=== PATIENT | male | born 1970 | race Caucasian/White ===

== ENCOUNTER 2017-10-23 13:42 | Emergency (ER) | payer OTHER, MEDICAID, SELFPAY ==
[2017-10-23 13:46] VITALS: BP 147/89; PULSE 97; RESP 12; TEMP 37.2; O2SAT 97
--- NOTE | 2017-10-23 14:08 | ED.ANXIETY ---
HPI - Anxiety General Chief Complaint: Anxiety Stated Complaint: ANXIETY Time Seen by Provider: 10/23/17 13:57 Source: patient Mode of arrival: ambulatory Limitations: no limitations History of Present Illness HPI narrative: Patient is a 47-year-old male with a longstanding history of anxiety currently being followed by a mental health provider and also a counselor at [facility]. Is on Celexa and also Xanax. States that for approximately 2 months he was off of all of his medications. States approximately 2-3 weeks ago he was placed back on his medications and has been taking the Celexa on a daily basis. Over the past 4-5 days he has had an increase in his anxiety. He states that this is secondary to a change in living situation where his roommate is moving out. He states that he has been taking his Xanax for the past 4 days and normally 1 dose of this medication will carry him for several days in a row of her he has been having to take it every day for the past 4 days. Related Data Home Medications Medication Instructions Recorded Confirmed citalopram 20 mg PO DAILY #0 03/22/17 10/23/17 Previous Rx's Medication Instructions Recorded alprazolam 1 mg PO TIDP PRN #10 tab 03/22/17 Allergies Allergy/AdvReac Type Severity Reaction Status Date / Time Sulfa (Sulfonamide Allergy Unknown Verified 10/23/17 14:13 Antibiotics) [SULFA (SULFONAMIDE ANTIBIOTICS)] Review of Systems Constitutional Denies fever(s) Cardiovascular Denies chest pain, Denies syncope and Denies dyspnea Respiratory Denies dyspnea Gastrointestinal Gastrointestinal: Denies abdominal pain Musculoskeletal Denies myalgias and Denies arthralgias Integumentary/Breasts Denies lesions and Denies rash Neurologic Denies syncope Psychiatric Reports anxiety, Denies mood swings and Denies panic attacks Hematologic/Lymphatic Denies easy bleeding and Denies easy bruising PFSH Medical History Anxiety (Acute) Surgical History No pertinent past surgical history (Acute) Social History Smoking Status: Current every day smoker Exam Initial Vital Signs Initial Vital Signs: Vital Signs Temperature 98.9 F 10/23/17 13:46 Pulse Rate 97 H 10/23/17 13:46 Respiratory Rate 12 10/23/17 13:46 Blood Pressure 147/89 H 10/23/17 13:46 Pulse Oximetry 97 10/23/17 13:46 Const General: cooperative, comfortable, well developed and well groomed Orientation: alert, awake and oriented x3 Resp Effort & Inspection: normal respiratory effort Skin Lesions: no lesions Rashes: no rashes Neuro General: alert, awake and oriented x3 Cognition: normal cognition Speech: speech normal Extrem General: normal to inspection and full ROM Psych Appearance: grossly normal and well kempt Mood: anxious mood Affect: anxious affect Attitude: cooperative Thought Process: normal Thought Content: normal, no homicidality and suicidality Course Orders Ordered: Discontinued Medications Lorazepam (Ativan) 2 mg PO NOW ONE Stop: 10/23/17 14:09 Last Admin: 10/23/17 14:16 Dose: 2 mg Vital Signs - 8 hr 10/23/17 13:46 10/23/17 15:54 Temperature 98.9 F Pulse Rate 97 H 74 Respiratory Rate 12 16 Blood Pressure 147/89 H Blood Pressure [Left Arm] 130/80 Pulse Oximetry 97 99 [facility] - Anxiety Medical Records Attestation: I reviewed the patient's medical records. [facility] Narrative Medical decision making narrative: Patient denies SI or HI. Was given 2 mg of Ativan here in the emergency department. It does appear that he has been taking his Xanax only 1 time a day when it was prescribed that he can take it up to 3 times a day. He states that he is taking his Celexa every day. He was evaluated by social work here in the ER. They were able to move his medication management appointment up to November 05 at 0130 in the afternoon. The patient was given this information. Patient states he was feeling much better. Does not meet inpatient criteria. Is alert and oriented x3. Does have a ride home. He was given return precautions. Discharge Plan Departure Patient Disposition: Home Clinical Impression: Anxiety Instructions: Anxiety and Panic Attacks (Alternative Therapy), DI for Anxiety -- Adult, Yoga May Help Reduce Anxiety and Stress Activity Restrictions/Additional Instructions: We were able to move your medication management appointment up to November 05, 2017 at 0130 in the afternoon. This is at the [address] [facility]. Take all of your medications as instructed and like we discussed. Return to the emergency department for any new or worsening symptoms Prescriptions: No Action citalopram 20 MG tablet 20 mg PO DAILY Qty: 0 RF: 0 alprazolam 1 MG tablet 1 mg PO TIDP PRNQty: 10 RF: 0
[2017-10-23] MEDS: LORazepam 0.5 MG TABLET 2 MG PO (14:16)
[2017-10-23 15:54] VITALS: BP 130/80; PULSE 74; RESP 16; O2SAT 99
--- NOTE | 2017-10-23 16:16 | CM.SWNOTE ---
ED CARDING DOUBLER NOTE Presenting Problem:/ Mental Status Pt is a 47 yo male who looks approximately his stated age. He was lying on the hospital bed with eyes closed when TECHNOLOGY DIRECTOR entered the room. He was very cooperative and agreed to meet with [facility]. Pt reported feeling increasingly anxious. He stated that he functions at a 4 on a 1-10 scale and currently is a 10. When asked what this means, he stated that when he gets to this stage, he has difficulty eating, and caring for himself. Speech was normal for rate and rhythm; volume low. Speech is goal directed with no noted psychotic thought process. Pt denied HI. He stated he has had some SI, but when assessed denied any current plan. He reported that if he were he get into a car accident and be killed, he would not be sorry. He has no plan to crash his vehicle or cause a car accident. He has has some vague thoughts about taking pills, but stated that he would not do this. Pt has several protective factors. He said that he would not do this to this family. He identified his sister, father and brother as supportive people in his life. 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 Pt grew up [facility] [place]. father is a retired [employer] forestry biology specialist. He has studied a lot of religions and has found them to be of help to him. Pt finds listening to music, playing video games and reaidng as ways to help to calm himself, but has stated that in itmes of high anxity, they fo not work. Risk factor: Pt reported that his grandfather killed himself when his mother was in high school He said that she never got over this and would not want to cause other family members this pain. Possible precipitants are the fact that his roomate is moving out in 3 days. this man has been the pt's best friend since 1988 and they have lived together since 2001. Pt's mother June 2014; she was only diagnosed with cancer in February and was thought to have 6-12 months to live. She was characterized as the matriarch of the familya nd after her , the family has been having a difficult time. Mental Health History: Pt reported that anxiety began when he was 5, but he did not realize that it was anxiety that he suffered from until 5-6 years ago. He stated that going to school was difficult and thought that it was due to being homesick, but believes it was due to having to be in one place for 8 hours and caused him to panic. 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 Pt has never been psychiatrically hospitalized, nor attempted suicide. He reported that he functions on a 4-5 on a scale of 1-10, but today was at a 10. Pt stated that he had a breakdown May 2016, and has not been able to return to work since. Prior to that time he was able to maintain jobs for several months at a time. He reported that his anxiety often caused him to leave employment, but because he was a good employee was frequently rehired. Pt stated that he has not felt that he has functioned well since the . He has periods of being able to function, but at other times, finds it extremely difficult to eat, shower, and take care of his basic needs. Pt described feeling as though he has blown a fuse. He further described this by stating that he has a list of things to do, will look at them and become overwhelmed. TECHNOLOGY DIRECTOR explained that this is often a symptom of depression and explained that he may be dealing with depression coupled with anxiety. Substance use: Pt stated that he used to smoke a lot of marijuana, but now only uses it during periods of low anxiety. He stated that 5-6 years ago after smoking some marijuana he became extremely anxious. What he described, sounded as though he may have experienced a panic attack. Pt stated that this was quite difficult and now only smokes when feeling a low level of anxiety. It is unknown if pt drinks and what amount. Family Psychiatric HIstory Pt stated that his brother and sister both have anxiety and since his mother's , his father has been depressed. As stated earlier, pt's paternal grandfather killed himself, when pt's mother was in high school. Mental Health Providers: Pt has been seen at [facility] in [place] since May 2016. He has a counselor Angely that he sees twice per month and a medication management provider, Dr Santoyo who he has seen, but has frequently been out of the office this year. Pt stated that he takes Celexa 40 mg per day and Xanax 1 mg. He has not felt that the medication has resoved his issues, but also stated that at times when he feels better, he will stop the medication. [facility] has encouraged him to continue with medication as prescribed. Plan: Pt is a current pt at [facility]. His medication management appointment has been moved up to at 1:30 PM. Pt has an appt with his counselor 11/02/17. He can contact his brother or sister if in crisis and is aware that he can call [facility]. [facility] asked for this record to be faxed. Pt h as given permission for informatin obtained today to be faxed to [facility]. ED Crisis Response Assessment Start: 10/23/17 16:05 Freq: Status: Active Protocol: Document 10/23/17 16:05 (Rec: 10/23/17 16:07 [id number]) ED Crisis Response Assessment CARDING DOUBLER Assessment Type Mental Health Reason for CARDING DOUBLER Referral Pt came to the Emergency Room with Anxiety as presenting problem. Referred by Pt's LORNA Obrien and provider, Dr Hicks. Presenting Problem Pt reported that anxiety has been increasing over the past 4-5 days. Mental health diagnosis Anxiety, with panic attacks; Major depression, moderate, recurrent. [facility] check No: Pt is current with [facility], [place] Suicidal thoughts Yes Past Suicidal thoughts Yes Current Suicidal thoughts Yes: [facility] assessed pt. He has SI, but no plan. Prior Suicide attempts No Current plan for self harm No Access to guns and weapons No Thoughts of harm to others No Past thoughts of harm to others No Current thoughts of harming others No Prior attempts to harm others No Current plan to harm others No Crisis Plan TECHNOLOGY DIRECTOR called [facility]. His appt has been able to be changed from to Nov 05 for an emergency visit with a provider for medication management. Pt is a current clinet and aware of their emergency services. Resources Provided Pt is current with [facility] and aware of their crisis services. Action taken Sent home: family/friends Additional Comment Pt's sister brought pt to the hospital. He will return home. Roomate is best freind and very supportive and although moving, will be there for the next 3 days.
[2017-10-23 17:06] VITALS: BP 127/83; PULSE 78; RESP 16; O2SAT 95
== END 2017-10-23 17:12 | disposition home or self-care (01) ==
PROVIDERS: Emergency Provider Emergency Medicine
DX: F41.9 Anxiety disorder, unspecified (principal)
CPT/HCPCS: 99282; 99283

== ENCOUNTER 2017-10-31 14:38 | Emergency (ER) | payer OTHER, MEDICAID, SELFPAY ==
[2017-10-31 14:47] VITALS: BP 149/96; PULSE 103; RESP 20; TEMP 36.4; O2SAT 98; BMI 23.5
--- NOTE | 2017-10-31 14:50 | PC.NURSE ---
has been seen by [facility] and will see them on Thursday.
--- NOTE | 2017-10-31 18:15 | ED_ITS ---
HPI - Extremity Problem General Chief complaint: Extremity Problem,Nontraumatic Stated complaint: PAIN IN RT ARM AND SIDE Time Seen by Provider: 10/31/17 18:04 Source: patient Mode of arrival: ambulatory Limitations: no limitations History of Present Illness HPI Narrative: 47-year-old male who I evaluated here in the emergency department for severe anxiety returns today for right shoulder pain. Patient states that he has had right shoulder pain for about a month now. He states that he had at the last time he was here in the ER but did not talk to me about it. He does have a follow-up with his primary doctor on Thursday however he was anxious about it and would like it evaluated. No specific trauma. He states that it hurts because he has been lying on it for the past month and now moving all that much because of his anxiety. He states he occasionally gets tingling down his right arm. No neck pain. No skin changes. Related Data Home Medications Medication Instructions Recorded Confirmed citalopram 20 mg PO DAILY #0 03/22/17 10/23/17 Previous Rx's Medication Instructions Recorded alprazolam 1 mg PO TIDP PRN #10 tab 03/22/17 hydrocodone-acetaminophen [A[place]] 1 tab PO Q4-6H PRN #7 tab 10/31/17 Allergies Allergy/AdvReac Type Severity Reaction Status Date / Time Sulfa (Sulfonamide Allergy Unknown Verified 10/23/17 14:13 Antibiotics) [SULFA (SULFONAMIDE ANTIBIOTICS)] Review of Systems Constitutional Denies fatigue and Denies fever(s) Cardiovascular Denies chest pain and Denies dyspnea Respiratory Denies cough and Denies dyspnea Gastrointestinal Gastrointestinal: Denies abdominal pain Musculoskeletal Comments: Right shoulder pain Integumentary/Breasts Denies lesions and Denies rash Neurologic Comments: Tingling down her right arm Psychiatric Reports anxiety Endocrine Denies fatigue Hematologic/Lymphatic Denies easy bleeding and Denies easy bruising [facility] Medical History Anxiety (Acute) Surgical History No pertinent past surgical history (Acute) Social History Smoking Status: Current every day smoker Exam Initial Vital Signs Initial Vital Signs: Vital Signs Temperature 97.6 F 10/31/17 14:47 Pulse Rate 103 H 10/31/17 14:47 Respiratory Rate 20 10/31/17 14:47 Blood Pressure 149/96 H 10/31/17 14:47 Pulse Oximetry 98 10/31/17 14:47 Const General: cooperative, comfortable and well developed [facility] Head: normal to inspection and normocephalic Resp Effort & Inspection: normal respiratory effort Cardio Rate: regular rate Skin Lesions: no lesions Rashes: no rashes Neuro General: alert, awake and oriented x3 Sensory Exam: no sensory deficits noted Extrem Other: Tenderness to palpation throughout the right shoulder or however specially over the posterior and superior portion of the shoulder. Did have a positive [place] test. Negative Neer test. Positive cross-arm test. Negative drop can test Psych Appearance: grossly normal and well kempt Course Vital Signs - 8 hr 10/31/17 14:47 Temperature 97.6 F Pulse Rate 103 H Respiratory Rate 20 Blood Pressure 149/96 H Pulse Oximetry 98 MDM - Extremity (Nontraumatic) MDM Narrative Medical decision making narrative: Patient has had right shoulder pain for 1 month now. Doubt fracture. No signs of infection. Does have physical exam findings concerning for rotator cuff injury. He does have follow up on Thursday with his primary care doctor to discuss this. He was given return precautions. Hold on further workup for now. He expressed understanding and agreement with plan. Discharge Plan Departure Patient Disposition: Home Clinical Impression: Right shoulder pain Discharge Date/Time: 10/31/17 18:43 Interventions: ED Discharge Assessment Last Done: 10/31/17 18:30 Instructions: Shoulder Tendinopathy, DI for Rotator Cuff Injury, How To Perform RICE (Rest, Ice, Compress, Elevate) Activity Restrictions/Additional Instructions: Recommend that you keep your appointment that you have with your primary doctor on Thursday morning. Recommend that you talk with him/her about physical therapy. Continue to take anti-inflammatories such as Motrin/Naprosyn and Tylenol/acetaminophen like we discussed. Return to the emergency department for any new or worsening symptoms Prescriptions: New hydrocodone-acetaminophen [A[place]deen] 5-325 mg tablet 1 tab PO Q4-6H PRN (Reason: pain) Qty: 7 RF: 0 No Action citalopram 20 MG tablet 20 mg PO DAILY Qty: 0 RF: 0 alprazolam 1 MG tablet 1 mg PO TIDP PRNQty: 10 RF: 0
[2017-10-31 18:30] VITALS: BP 125/73; PULSE 79; RESP 18; O2SAT 95
== END 2017-10-31 18:43 | disposition home or self-care (01) ==
PROVIDERS: Emergency Provider Emergency Medicine
DX: M79.601 Pain in right arm (principal)
CPT/HCPCS: 99282